=== PATIENT | male | born 2005 | race Caucasian/White ===

== ENCOUNTER 2025-08-01 07:41 | Day surgery (SDC) | payer OTHER ==
[2025-08-01] VITALS (9 sets, daily range): BP systolic 132–148; BP diastolic 53–76
[~2025-08-01] VITALS: Ht 172.7 cm; Wt 67.0 kg
[~2025-08-01 07:41] MED LIST: CATAPRES0.2 M1; DULO30; HYDHCL25
[2025-08-01] MEDS ORDERED: Ampicillin Sod/Sulbactam Sod 3 GM in NS 100 ML IV SCH (07:45)
[2025-08-01] MEDS ORDERED: Bupivacaine 0.5% W/EPI 1:200000 SDV 30 ML Vial ONE (08:35)
[2025-08-01] MEDS ORDERED: Rocuronium Bromide 10 MG/ML 5ML Injection IV ONE (08:45)
[2025-08-01] MEDS ORDERED: FentaNYL Citrate 50 MCG/ML 2 ML Injection ONE (08:45)
[2025-08-01] MEDS ORDERED: Ondansetron HCl 2 MG / ML 2ML Vial ONE (09:06)
[2025-08-01] MEDS ORDERED: Dexamethasone Sod Phos 10 MG/ML 1ML VIAL ONE (09:06)
[2025-08-01] MEDS ORDERED: Ampicillin Sodium 2000MG Vial IV ONE (09:07)
[2025-08-01] MEDS ORDERED: HYDROmorphone HCl/Pf 1MG SYR IV PRN ×2 (09:15)
[2025-08-01] MEDS ORDERED: FentaNYL Citrate 50 MCG/ML 2 ML Injection IV PRN (09:15)
[2025-08-01] MEDS ORDERED: Albuterol 2.5 MG/3 ML VIAL INH PRN (09:15)
[2025-08-01] MEDS ORDERED: Metoclopramide HCl 5MG / ML 2ML Vial IV PRN (09:20)
[2025-08-01] MEDS ORDERED: Ketorolac Tromethamine 30mg Vial IV PRN (09:20)
[2025-08-01] MEDS ORDERED: Sugammadex Sodium 200 MG/2ML SDV (100 MG/ML) ONE (10:08)
[2025-08-01] MEDS ORDERED: OxyCODONE 5 mg/Acetamin 325 mg TABLET PO PRN (11:00)
--- NOTE | 2025-08-01 11:12 | NUR ---
Discharge instructions reviewed with patient. Patient verbalizes understanding. Copy given to patient to take home. Patient States Post-Procedure ride home has been arranged. Discharged via wheelchair to private car for ride home.
== END 2025-08-01 11:24 | disposition home or self-care (01) ==
LOC: ORSCMMR 07:41 → ORD 09:00 → ORSCMMR 11:24
PROVIDERS: Surgery
PROC: 0HX8XZZ Transfer Buttock Skin, External Approach (ICD-10-PCS; principal; 2025-08-01 09:00)
PROC: 0JB90ZZ Excision of Buttock Subcutaneous Tissue and Fascia, Open Approach (ICD-10-PCS; principal; 2025-08-01 09:00)
DX: L05.01 Pilonidal cyst with abscess (principal)
CPT/HCPCS: 88304; A9270; J0290; J0295; J1100; J2405; J2704; J3010; J7120

== ENCOUNTER 2025-08-30 18:21 | Inpatient (IN) | payer OTHER ==
[~2025-08-30] VITALS: Ht 175.3 cm; Wt 77.8 kg
[~2025-08-30 18:21] MED LIST changes: -AMOCLA875 PO; -MIRALAX17 GM PO
[2025-08-30] MEDS ORDERED: FentaNYL Citrate 50 MCG/ML 2 ML Injection IV ONE (21:20)
[2025-08-30] MEDS ORDERED: NS 1,000 ML IV ONE ×2 (21:41→23:50)
[2025-08-30] MEDS ORDERED: NS 1,000 ML IV SCH (22:45)
[2025-08-30] MEDS ORDERED: Vancomycin (Pharmacy Consult) IV PRN (22:45)
[2025-08-30] MEDS ORDERED: Ketorolac Tromethamine 15mg Vial IV ONE (23:05)
[2025-08-30] MEDS ORDERED: CeFAZolin Sodium 1,000 MG in NS 50 ML IV SCH (23:06)
[2025-08-30 23:32] LABS: BASOPHILS ABSOLUTE AUTO 0.04 K/mm3 (0.00-0.23); BASOPHILS PERCENT AUTO 0 % (0-2); EOSINOPHILS ABSOLUTE AUTO 0.01 K/mm3 (0.00-0.68); EOSINOPHILS PERCENT AUTO 0 % (0-6); Hematocrit 38.1 % (37.0-53.0); Hemoglobin 13.3 g/dL (13.5-17.5); IMMATURE GRAN ABSOLUTE AUTO 0.12 K/mm3 (0.00-0.10); IMMATURE GRAN PERCENT AUTO 1 % (0-1); LYMPHOCYTES ABSOLUTE AUTO 1.46 K/mm3 (0.84-5.20); LYMPHOCYTES PERCENT AUTO 7 % (21-46); MONOCYTES ABSOLUTE AUTO 1.70 K/mm3 (0.16-1.47); MONOCYTES PERCENT AUTO 8 % (4-13); Mean Corpuscular HGB Conc 34.9 g/dL (31.5-36.5); Mean Corpuscular Volume 85 fL (80-100); NEUTROPHILS ABSOLUTE AUTO 18.25 K/mm3 (1.96-9.15); NEUTROPHILS PERCENT AUTO 85 % (41-73); NRBC ABSOLUTE 0.00 K/mm3 (0.00-0.02); NRBC Auto 0.0 /100 WBC (0.0-0.2); Platelet Count 191 K/mm3 (150-400); RDW Coefficient Variation 11.9 % (11.7-14.2); RDW Standard Deviation 36.4 fL (35.1-46.3)
[2025-08-30 23:51] LABS: Alanine Aminotransfer (ALT/SGP 24.0 U/L (12-78); Albumin, Blood 3.7 g/dL (3.4-5.0); Albumin/Globulin Ratio 1.3 (0.8-1.8); Anion Gap 10.0 mmol/L (3-11); Aspartate Aminotrans (AST/SGOT 12.0 U/L (12-37); Bilirubin, Total 1.2 mg/dL (0.1-1.0); Blood Urea Nitrogen 9.0 mg/dL (8-24); CO2, Blood 22.0 mmol/L (21-32); Calcium, Blood 8.6 mg/dL (8.5-10.1); Chloride, Blood 109.0 mmol/L (98-108); Creatinine, Blood 0.72 mg/dL (0.60-1.20); Globulin, Blood 2.9 g/dL (2.2-4.0); Glucose, Blood 117.0 mg/dL (70-99); Potassium, Blood 3.8 mmol/L (3.5-5.5); Sodium, Blood 137.0 mmol/L (136-145); Total Protein, Blood 6.6 g/dL (6.4-8.2)
[2025-08-30] MEDS ORDERED: Ketorolac Tromethamine 30mg Vial IV PRN (23:55)
[2025-08-30] MEDS ORDERED: FLU VACC TS2025-26(6MOS UP)/PF 45 MCG/0.5 ML SYRINGE IM SCH (23:55)
[2025-08-30] MEDS ORDERED: Vancomycin (Pharmacy Consult) IV SCH (23:55)
[2025-08-30] MEDS ORDERED: FentaNYL Citrate 50 MCG/ML 2 ML Injection IV PRN (23:55)
[2025-08-30] MEDS ORDERED: Ondansetron HCl 2 MG / ML 2ML Vial IV PRN (23:55)
[2025-08-31] VITALS (25 sets, daily range): BP systolic 94–138; BP diastolic 43–66
[2025-08-31] MEDS ORDERED: HYDROmorphone HCl/Pf 1MG SYR IV ONE
[2025-08-31] MEDS ORDERED: Piperacillin/Tazobactam Sod 4.5 GM in NS 100 ML IV SCH ×2 (00:35→08:00)
[2025-08-31 02:40] LABS: Prothrombin Time Results 13.7 Sec (9.7-11.5)
--- NOTE | 2025-08-31 05:05 | NUR ---
NEW ADMIT FOR 08/31/25 0137/SHIFT SUMMARY REPORT WAS RECEIVED FROM THE ER NURSE. PT WAS BROUGHT DOWN ON THE GURNEY AND GOT OFF AND AMBULATED TO THE BED. PTS WIVES WITH HIM. PT AND WERE ORIENTED TO THE ROOM AND STAFF. PT IS A&OX4 ABLE TO VERBALIZE NEEDS AND CALLS APPROPRIATELY . VSS ON RA SPO2 >95%. HIS BP IS LOW AT 98/43 AND 99/44. HE STATES THAT HIS BP GETS LOW AFTER HE TAKES HIS NIGHT MEDS WHICH IS HYDRALAZINE AND CLONIDINE. HES NSR IN THE 80S. CALLED AND LEFT A MESSAGE FOR DR. ARMENDARIZ OFFICE FOR THE SURGICAL CONSULT. HE REMAINS NPO FOR POSSIBLE SURGERY TO PILONIDAL ABSCESS. ABLE TO TAKE MEDS WHOLE IN WATER. GETS UP AD JORGE AND URINATES IN THE URINAL IN THE BATHROOM. BED IN LOWEST POSITION,, CALLS APPROPRIATELY AND IS ABLE TO ADVOCATE NEEDS EFFECTIVELY.
[2025-08-31 05:52] LABS: BASOPHILS ABSOLUTE AUTO 0.05 K/mm3 (0.00-0.23); BASOPHILS PERCENT AUTO 0 % (0-2); EOSINOPHILS ABSOLUTE AUTO 0.04 K/mm3 (0.00-0.68); EOSINOPHILS PERCENT AUTO 0 % (0-6); Hematocrit 35.6 % (37.0-53.0); Hemoglobin 12.4 g/dL (13.5-17.5); IMMATURE GRAN ABSOLUTE AUTO 0.19 K/mm3 (0.00-0.10); IMMATURE GRAN PERCENT AUTO 1 % (0-1); LYMPHOCYTES ABSOLUTE AUTO 1.70 K/mm3 (0.84-5.20); LYMPHOCYTES PERCENT AUTO 8 % (21-46); MONOCYTES ABSOLUTE AUTO 2.12 K/mm3 (0.16-1.47); MONOCYTES PERCENT AUTO 10 % (4-13); Mean Corpuscular HGB Conc 34.8 g/dL (31.5-36.5); Mean Corpuscular Volume 87 fL (80-100); NEUTROPHILS ABSOLUTE AUTO 17.47 K/mm3 (1.96-9.15); NEUTROPHILS PERCENT AUTO 81 % (41-73); NRBC ABSOLUTE 0.00 K/mm3 (0.00-0.02); NRBC Auto 0.0 /100 WBC (0.0-0.2); Platelet Count 195 K/mm3 (150-400); RDW Coefficient Variation 12.0 % (11.7-14.2); RDW Standard Deviation 37.9 fL (35.1-46.3)
[2025-08-31 06:31] LABS: Alanine Aminotransfer (ALT/SGP 22.0 U/L (12-78); Albumin, Blood 3.1 g/dL (3.4-5.0); Albumin/Globulin Ratio 1.1 (0.8-1.8); Anion Gap 11.0 mmol/L (3-11); Aspartate Aminotrans (AST/SGOT 11.0 U/L (12-37); Bilirubin, Total 1.4 mg/dL (0.1-1.0); Blood Urea Nitrogen 9.0 mg/dL (8-24); CO2, Blood 19.0 mmol/L (21-32); Calcium, Blood 8.4 mg/dL (8.5-10.1); Chloride, Blood 111.0 mmol/L (98-108); Creatinine, Blood 0.73 mg/dL (0.60-1.20); Globulin, Blood 2.8 g/dL (2.2-4.0); Glucose, Blood 111.0 mg/dL (70-99); Potassium, Blood 3.7 mmol/L (3.5-5.5); Sodium, Blood 137.0 mmol/L (136-145); Total Protein, Blood 5.9 g/dL (6.4-8.2)
--- NOTE | 2025-08-31 07:55 | NUR ---
DR ARAIZA IN ROOM ROUNDING
[2025-08-31] MEDS ORDERED: NS 250 ML IV PRN (08:55)
[2025-08-31] MEDS ORDERED: DULoxetine HCL 60 MG Capsule DR PO SCH (09:00)
[2025-08-31] MEDS ORDERED: FentaNYL Citrate 50 MCG/ML 2 ML Injection ONE ×2 (09:05→11:02)
[2025-08-31] MEDS ORDERED: Rocuronium Bromide 10 MG/ML 5ML Injection IV ONE (09:05)
[2025-08-31] MEDS ORDERED: Ondansetron HCl 2 MG / ML 2ML Vial IV PRN (09:10)
[2025-08-31] MEDS ORDERED: FentaNYL Citrate 50 MCG/ML 2 ML Injection IV PRN ×2 (09:15)
[2025-08-31] MEDS ORDERED: Albuterol 2.5 MG/3 ML VIAL INH PRN (09:15)
[2025-08-31] MEDS ORDERED: HYDROmorphone HCl/Pf 1MG SYR IV PRN (09:15)
[2025-08-31] MEDS ORDERED: Bupivacaine 0.5% W/EPI 1:200000 SDV 30 ML Vial ONE (09:16)
[2025-08-31] MEDS ORDERED: Midazolam HCl 1MG / ML 2ML Vial ONE (09:24)
[2025-08-31] MEDS ORDERED: Lidocaine HCl 4% 5 ML SDA ONE (09:25)
[2025-08-31] MEDS ORDERED: Dexamethasone Sod Phos 10 MG/ML 1ML VIAL ONE (10:03)
[2025-08-31] MEDS ORDERED: Ondansetron HCl 2 MG / ML 2ML Vial ONE (10:03)
[2025-08-31] MEDS ORDERED: Sugammadex Sodium 200 MG/2ML SDV (100 MG/ML) ONE (10:04)
[2025-08-31] MEDS ORDERED: Ketorolac Tromethamine 30mg Vial ONE (11:02)
--- NOTE | 2025-08-31 17:20 | NUR ---
SHIFT SUMMARY PATIENT TO SURGERY THIS SHIFT FOR I&D, WOUND VAC IN PLACE. DRESSING NEEDED TO BE REINFORCED D/T AIRLEAK. FENTANYL GIVEN FOR PAIN REPORTS GOOD RELIEF. REPORTS MILD NAUSEA. VSS. VOIDING ADEQUATELY. ABLE TO MAKE NEEDS KNOWN. CALL LIGHT IN REACH. A/O X4.
[2025-08-31 23:40] LABS: Vancomycin, Trough 10.4 ug/mL (5.0-10.0)
[2025-09-01] VITALS (7 sets, daily range): BP systolic 109–138; BP diastolic 51–80
--- NOTE | 2025-09-01 06:00 | NUR ---
SHIFT SUMMARY PATIENT A/OX4. PLEASANT AND COOPERATIVE WITH ALL CARE. GOOD SUPPORT FROM FAMILY. STAYED WITH HIM AT BEDSIDE DURING SHIFT. PATIENT MEDICATED INITIALLY WITH TYLENOL AND TORADOL WITH GOOD RELIEF. PATIENT NOW POST OP DAY 1 FOR I&D ON PILONIDAL CYST ABSCESS. WOUND VAC IN PLACE WITH GOOD SEAL. SEROSANGUINOUS FLUID PRESENT IN CANISTER. PATIENT IS TOLERATING WELL. SLEPT MOST OF NIGHT. VSS. DR NELSON ROUNDED THIS MORNING. LIKELY DISCHARGE TOMORROW. PLAN OF CARE ONGOING.
--- NOTE | 2025-09-01 09:51 | NUR ---
RED FARRELL ON LFA ABOUT 0800 THIS MORNING THE PT'S VANCOMYCIN WAS FINISHED RUNNING IN THE PT'S LFA IV. THE PT HAD SOME TENDERNESS TO FLUSHE, BUT HAD ABOUT 4 DARREL SIZED RED FARRELL THAT THE PT STATED APPEARED TODAY. THE PT STATED THEY SHOWED UP THIS MRONING. THE FARRELL WERE OUTLINED AND SHOWN TO JOY LOADER NICOLE. DR. NELSON MADE AWARE OF REDMARKS. VANCOMYCIN WAS D/C'D. ABOUT 45MINUTES AFTER VANCOMYCIN WAS STOPPED THE REDMARKS AND TENDERNESS DISAPATED. THE PT'S LFA IV WAS D/C'D D/T CONCERNS. SEE NOTES FOR UPDATES.
--- NOTE | 2025-09-01 13:34 | NUR ---
MORNING SUMMARY THE PT HAS BEEN A&OX4, SLEEPY THIS MORNING, IND IN THE ROOM, AND MAKES HIS NEEDS KNOWN. THE PT IS SURGICAL WITHOUT TELE, VITALS STABLE. SP02 >95% ON RA AND HE DENIES ANY SOB OR ANGINA. THE PT HAS DENIED ANY PAIN THUS FAR THIS SHIFT. HE HAS A WOUND VACC ON HIS SACCRUM AND IS POD 1 FROM I&D. 50CC'S OF OUTPUT WAS NOTED IN THE CANNISTER AT THE CHANGE OF SHIFT ABOUT 0700 THIS MORNING AND THERE IS NOT ANY NEW NOTED DRIANAGE SINCE ASSUMPTION OF CARE. THERE WERE REPORTS OF SEAL LEKAING DURING THE NIGHT AND IT HAPPENED ONCE AT THE START OF THIS SHIFT. THIS RN REINFORCED WOUND VACCUME SEAL AND SEAL HAS NOT BEEN AN ISSUE SINCE. AWAITING FOR THE SURGEON TO ROUND ON THE PT FOR CONTINUED PLAN OF CARE. THE PT'S YINKA HAS BEEN AT BEDSIDE AND UPDATED ON CARE. SEE NOTES FOR UPDATES.
--- NOTE | 2025-09-01 15:27 | NUR ---
CALL TO DR. NELSON D.T C/O CHEST DISCOMFORT AND SOB DURING ROUNDS, THIS RN WAS ASSESSING THE PT AND ABOUT 1515 THE PT REPORTS HE HAS BEEN HAVING CHEST DISCOMFORT AND SOB WHEN HE TRIES TO TAKE A DEEP BREATH. THE PT REPORTED THIS HAS BENE HAPPENING FOR HIM ABOUT TWO HOURS. THIS RN DID GIVE THE PT A FLUTTER VALVE AND INCENTIVESPIROMETER AND EDUCATED PT ABOUT RISK OF DEVELOPING PNA. THE PT IS BEING ENCOURAGED TO SIT UP AND USE HIS BREATHING TOOLS EVERY COMMERCIAL 3-5X. THE PT DOES HAVE CLEAR LUNGS BUT THE RLL DOES APPEAR SLIGHTLY MORE DIMINISHED THEN THIS MORNING. THE PT AND HIS WERE EDUCATED AGAIN ABOUT CALLING FOR ANY CHANGES, ALARMS, OR CONCERNS. THIS RN CALLED DR. NELSON ABOUT CHANGES. DR. NELSON AGREED WITH FLUTTER VALVE AND I.S. DR. NELSON STATED THAT IF THE PT IS STILL EXPIERENCING THESE DISCOMFORT IN THE MORNING THEN WE COULD CONCIDER A CHEST XRAY. SEE NOTES FOR ANY UPDATES.
[2025-09-01] MEDS ORDERED: Polyethylene Glycol 3350 17 gm PO SCH (21:00)
[2025-09-01] MEDS ORDERED: Enoxaparin 40 MG/0.4 ML SYR SC SCH (21:00)
[2025-09-02 04:21] VITALS: BP 108/87
--- NOTE | 2025-09-02 05:53 | NUR ---
NO ACUTE EVENTS OVERNIGHT. PT HAD A COMPLAINT OF MILD HEADACHE. PT MEDICATED PER NOV. PT SLEPT THROUGHOUT NIGHT. AMBULATED TO BATHROOM INDEPENDENTLY. REFUSED BOWEL MEDS BECAUSE PT STATES HE HAD 2 BMs TODAY. IS AT BEDSIDE. WOUND VAC IN PLACE AND FUNCTIONING PROPERLY. BED LOCKED IN LOWEST POSITION. CALL LIGHT WITHIN REACH. PT TO D/C WITH WOUND VAC.
[2025-09-02 07:36] VITALS: BP 147/94
[2025-09-02 08:08] LABS: BASOPHILS ABSOLUTE AUTO 0.03 K/mm3 (0.00-0.23); BASOPHILS PERCENT AUTO 0 % (0-2); EOSINOPHILS ABSOLUTE AUTO 0.11 K/mm3 (0.00-0.68); EOSINOPHILS PERCENT AUTO 1 % (0-6); Hematocrit 36.1 % (37.0-53.0); Hemoglobin 12.6 g/dL (13.5-17.5); IMMATURE GRAN ABSOLUTE AUTO 0.05 K/mm3 (0.00-0.10); IMMATURE GRAN PERCENT AUTO 0 % (0-1); LYMPHOCYTES ABSOLUTE AUTO 3.53 K/mm3 (0.84-5.20); LYMPHOCYTES PERCENT AUTO 29 % (21-46); MONOCYTES ABSOLUTE AUTO 0.71 K/mm3 (0.16-1.47); MONOCYTES PERCENT AUTO 6 % (4-13); Mean Corpuscular HGB Conc 34.9 g/dL (31.5-36.5); Mean Corpuscular Volume 85 fL (80-100); NEUTROPHILS ABSOLUTE AUTO 7.81 K/mm3 (1.96-9.15); NEUTROPHILS PERCENT AUTO 64 % (41-73); NRBC ABSOLUTE 0.00 K/mm3 (0.00-0.02); NRBC Auto 0.0 /100 WBC (0.0-0.2); Platelet Count 221 K/mm3 (150-400); RDW Coefficient Variation 12.3 % (11.7-14.2); RDW Standard Deviation 37.7 fL (35.1-46.3)
--- NOTE | 2025-09-02 08:31 | NUR ---
am note this rn assumed care at 0700. vital signs stable. surgical status, no tele. patient is alert and oriente x4. perrla. patient is independent in adls. patient is able to call to make needs known and uses call light appropriately. patient denies pain, chest pain/pressure or shortness of breath. patient wound vac is hooked up and has an adequate seal. patient lung sounds clear throughout. patient abd is soft nontender and active. see shift assessment for further detials. plan of care is up to date at this time.
[2025-09-02 08:40] LABS: Alanine Aminotransfer (ALT/SGP 24.0 U/L (12-78); Albumin, Blood 3.0 g/dL (3.4-5.0); Albumin/Globulin Ratio 0.9 (0.8-1.8); Anion Gap 8.0 mmol/L (3-11); Aspartate Aminotrans (AST/SGOT 14.0 U/L (12-37); Bilirubin, Total 0.5 mg/dL (0.1-1.0); Blood Urea Nitrogen 8.0 mg/dL (8-24); CO2, Blood 26.0 mmol/L (21-32); Calcium, Blood 8.8 mg/dL (8.5-10.1); Chloride, Blood 111.0 mmol/L (98-108); Creatinine, Blood 0.62 mg/dL (0.60-1.20); Globulin, Blood 3.4 g/dL (2.2-4.0); Glucose, Blood 113.0 mg/dL (70-99); Potassium, Blood 3.8 mmol/L (3.5-5.5); Sodium, Blood 141.0 mmol/L (136-145); Total Protein, Blood 6.4 g/dL (6.4-8.2)
--- NOTE | 2025-09-02 10:33 | NUR ---
update- rounding md guerrier in to see patient and plan for patient to discharge once home wound vac is here. patient agrees with this plan of care
[2025-09-02] MEDS ORDERED: MIRALAX17 GM PO (11:08)
[2025-09-02] MEDS ORDERED: AMOCLA875 PO (11:10)
--- NOTE | 2025-09-02 16:28 | NUR ---
discharge note this rn went over discharge instructions and wound vac instructions. patient verbalized understanding and verbalized understanding. patient left with all wound vac belongings and all patient belongings. patient left in no distress and walked out with family.
== END 2025-09-02 16:19 | disposition home or self-care (01) | DRG 863 ==
LOC: ER 18:21 → PCU 23:08 → ERHOLD 23:08 → PCU 08-31 01:36 → UNDODEPER 09-02 10:26 → PCU 09-02 16:19
PROVIDERS: Internal Medicine; Student in an Organized Health Care Education/Training Program; ADMIT Internal Medicine
PROC: 0H98X0Z Drainage of Buttock Skin with Drainage Device, External Approach (ICD-10-PCS; principal; 2025-08-31 07:30)
DX: T81.40XA Infection following a procedure, unspecified, initial encounter (principal); L05.01 Pilonidal cyst with abscess; B95.1 Streptococcus, group B, as the cause of diseases classified elsewhere; F41.8 Other specified anxiety disorders; Z87.74 Personal history of (corrected) congenital malformations of heart and circulatory system; Z79.899 Other long term (current) drug therapy
CPT/HCPCS: 36415; 80053; 80202; 83605; 83880; 85025; 85610; 87040; 87070; 87075; 87147; 87205; 96361; 96374; 99284-25; A9270; J0690; J1100; J1650; J1885; J2003; J2250; J2405; J2543; J2704; J3010; J3373; J7030; J7050

== ENCOUNTER → 2025-08-30 | Outpatient (CLI) | payer OTHER ==
[~2025-08-30] MED LIST changes: +AMOCLA875 PO; +MIRALAX17 GM PO
[2025-08-30 14:58] LABS: BASOPHILS ABSOLUTE AUTO 0.05 K/mm3 (0.00-0.23); BASOPHILS PERCENT AUTO 0 % (0-2); EOSINOPHILS ABSOLUTE AUTO 0.00 K/mm3 (0.00-0.68); EOSINOPHILS PERCENT AUTO 0 % (0-6); Hematocrit 43.1 % (37.0-53.0); Hemoglobin 15.3 g/dL (13.5-17.5); IMMATURE GRAN ABSOLUTE AUTO 0.19 K/mm3 (0.00-0.10); IMMATURE GRAN PERCENT AUTO 1 % (0-1); LYMPHOCYTES ABSOLUTE AUTO 0.71 K/mm3 (0.84-5.20); LYMPHOCYTES PERCENT AUTO 3 % (21-46); MONOCYTES ABSOLUTE AUTO 1.83 K/mm3 (0.16-1.47); MONOCYTES PERCENT AUTO 8 % (4-13); Mean Corpuscular HGB Conc 35.5 g/dL (31.5-36.5); Mean Corpuscular Volume 85 fL (80-100); NEUTROPHILS ABSOLUTE AUTO 21.60 K/mm3 (1.96-9.15); NEUTROPHILS PERCENT AUTO 89 % (41-73); NRBC ABSOLUTE 0.00 K/mm3 (0.00-0.02); NRBC Auto 0.0 /100 WBC (0.0-0.2); Platelet Count 235 K/mm3 (150-400); RDW Coefficient Variation 11.9 % (11.7-14.2); RDW Standard Deviation 36.1 fL (35.1-46.3)
[2025-08-30 15:09] LABS: Alanine Aminotransfer (ALT/SGP 27.0 U/L (12-78); Albumin, Blood 4.3 g/dL (3.4-5.0); Albumin/Globulin Ratio 1.3 (0.8-1.8); Anion Gap 13.0 mmol/L (3-11); Aspartate Aminotrans (AST/SGOT 16.0 U/L (12-37); Bilirubin, Total 1.8 mg/dL (0.1-1.0); Blood Urea Nitrogen 8.0 mg/dL (8-24); CO2, Blood 26.0 mmol/L (21-32); Calcium, Blood 9.7 mg/dL (8.5-10.1); Chloride, Blood 104.0 mmol/L (98-108); Creatinine, Blood 0.91 mg/dL (0.60-1.20); Globulin, Blood 3.3 g/dL (2.2-4.0); Glucose, Blood 123.0 mg/dL (70-99); Potassium, Blood 4.0 mmol/L (3.5-5.5); Sodium, Blood 139.0 mmol/L (136-145); Total Protein, Blood 7.6 g/dL (6.4-8.2)
[2025-08-30 15:33] LABS: BAND PERCENT MAN 7 % (0-8); LYMPHOCYTES ABSOLUTE MAN 0.24 K/mm3 (0.84-5.20); LYMPHOCYTES PERCENT MAN 1 % (21-46); MONOCYTES ABSOLUTE MAN 1.46 K/mm3 (0.16-1.47); MONOCYTES PERCENT MAN 6 % (4-13); NEUTROPHILS ABSOLUTE MAN 22.67 K/mm3 (1.96-9.15); SEG NEUTROPHILS PERCENT MAN 86 % (41-73)
== END ==
LOC: LAB 14:53 → LAB SHORT 14:53
PROVIDERS: Physician Assistant
DX: R50.9 Fever, unspecified (principal)
CPT/HCPCS: 80053; 83605; 85025

== ENCOUNTER 2025-09-03 02:22 | Day surgery (SDC) | payer OTHER ==
[~2025-09-03 02:22] MED LIST changes: +AMOCLA875 PO; +MIRALAX17 GM PO
== END 2025-09-03 23:16 | disposition home or self-care (01) ==
LOC: WOUND 02:22
DX: L05.01 Pilonidal cyst with abscess (principal); Z88.1 Allergy status to other antibiotic agents
CPT/HCPCS: G0463

== ENCOUNTER 2025-09-06 06:41 | Day surgery (SDC) | payer OTHER | END 2025-09-06 23:00 | disposition home or self-care (01) | LOC: WOUND 06:41 | DX: L05.01 Pilonidal cyst with abscess (principal) ==

== ENCOUNTER 2025-09-23 10:34 | Day surgery (SDC) | payer OTHER | END 2025-09-23 23:00 | disposition home or self-care (01) | LOC: WOUND 10:34 | DX: L05.01 Pilonidal cyst with abscess (principal) | CPT/HCPCS: A6213; G0463 ==